=== PATIENT | male | born 1990 | race Caucasian/White ===

== ENCOUNTER 2024-01-14 09:00 | Emergency (ER) | payer BC, SELFPAY ==
[2024-01-14 09:02] VITALS: BP 121/71
--- NOTE | 2024-01-14 09:21 | ED.GENMED ---
History of Present Illness
General
Chief Complaint: Rabies
Source: patient
Exam Limitations: none
Time Seen by Provider: 01/14/24 09:10
Nursing documentation reviewed up to this point in time: agreed with
Travel History
Have you had any contact with someone who has COVID-19?: No
Do you have any symptoms of coronavirus? Fever > 100 degrees, chills, cough, shortness of breath, sore throat, loss of taste or smell, muscle aches, or headache?: No
History of Present Illness
History of Present Illness:
Otherwise healthy 33-year-old male presenting to the emergency department today with concerns of a dog bite to his left posterior leg that occurred prior to arrival. He was helping up someone at the park would fall and when their dog ran up and bit
him in the leg. He is unsure if the dog is vaccinated the carton wrapper was unsure as well. He claims that he has no way of communicating with them in the future and is seeking rabies prophylaxis at this point. He was previously seen at urgent care and
was started on Augmentin and had the wound cleaned out at that point.
Review of Systems
Review of Systems
Allergies reviewed?: Yes
All Other Systems: ROS reviewed and negative except as documented in HPI and ROS
Phy Exam
Physical Exam
Physical Exam:
GENERAL: Alert , in no apparent distress
EYE: pupils equal and reactive
NECK: Supple, no significant adenopathy.
ENT: o/p clr, mmm.
CARDIAC: Regular rate and rhythm .
LUNGS: Clear breath sounds bilaterally, no acute respiratory distress, no wheezes/rales/rhonchi
ABDOMEN: Soft, without focal tenderness, no r/g, no cvat
NEUROLOGICAL: Alert and oriented, no focal neuro deficits
SKIN: What appears to be superficial injuries to the left-sided posterior leg just above the knee and popliteal fossa. No active bleeding mild tenderness to the area able to range fully at the knee warm and dry, skin intact.
MUSCULOSKELETAL: No edema, well perfused.
PSYCH: Normal and appropriate interaction.
Course
Orders/Labs/Results
Orders:
Orders
01/14/24 09:33
Rabies Immune Globulin/Pf [HyperRAB] 1,860 unit IM NOW STA
01/14/24 09:45
Rabies Vaccine (Pcec)/Pf [Rabavert Rabies Vacc W-Diluent] 2.5 unit IM .ONCE ONE
Vital Signs
Initial and Last Documented VS:
Initial Vital Signs
Temp Pulse Resp BP Pulse Ox
98.1 F 71 18 121/71 99
01/14/24 09:02 01/14/24 09:02 01/14/24 09:02 01/14/24 09:02 01/14/24 09:02
Last Documented Vital Signs
Temp Pulse Resp BP Pulse Ox
98.1 F 71 18 121/71 99
01/14/24 09:02 01/14/24 09:02 01/14/24 09:02 01/14/24 09:02 01/14/24 09:02
MDM/Problems Addressed
MDM/Problems Addressed:
33-year-old male presenting to the emergency department today with concerns of a dog bite to the left posterior leg. He is concerned that he is unable to follow-up with the carton wrapper and the carton wrapper was unsure if the dog was vaccinated. He is seeking
rabies prophylaxis at this point. Risk-benefit of this treatment was discussed with the patient and he elected for further treatment immunoglobulin and vaccine. He was also started on Augmentin. Patient up-to-date with his tetanus shot. Stable
for discharge injury to the leg was bandaged prior to discharge. No signs of deeper space injury.
*Critical Care Note
Total Time (30-74mins, 75-104mins- exclusive of procedures): Not Applicable
ED Attending Note
-
Portions of this chart may have been created with voice recognition software.� Occasional wrong word or��sound alike� substitutions may have occurred due to the inherent limitations of voice recognition software.
Discharge Plan
Departure
Patient Disposition: Home (Routine Discharge)
Date of Disposition: 01/14/24
Time of Disposition: 10:20
Patient with high blood pressure during this ER visit?: No
Condition: Good
Covid-19: Not Applicable
Discharge Problem:
Dog bite
Instructions: Animal Bites (DC), Rabies
Prescriptions:
New
RabAvert (PF) 2.5 unit Suspension For Reconstitution
1 ml IM . DIRECTED Qty: 3 0RF
Rx Instructions:
See Rabies Vaccine Post Exposure Prophylaxisfor Dosing Instructions Doses 01/17, 01/21, 01/27
Stand Alone Forms: Rabies Vaccine Post Exp Dosing
Activity Restrictions/Additional Instructions:
You came to the emergency department today after being bit by dog. You were started on the rabies prophylaxis. You are given the immunoglobulin and the vaccine today. Please receive the additional rabies vaccines on day 3 7 and 14 at the infusion
center. Return to the emergency department immediately for any worsening, new or concerning symptoms. Please additionally take Augmentin to reduce risk of infection and keep the area clean and covered.
Interventions
Interventions:
*Risk Screen - Suicide Last Done: 01/14/24 09:02
*General Assessment Last Done: 01/14/24 09:02
*Neglect/Abuse Screening Last Done: 01/14/24 09:02
*ED COVID-19 Vaccine History Last Done: 01/14/24 09:02
[2024-01-14] MEDS: HyperRAB 1860 UNIT IM (10:08)
[2024-01-14] MEDS: RABAVERT RABIES VACC W-DILUENT 2.5 UNIT IM (10:09)
== END 2024-01-14 10:46 | disposition home or self-care (01) ==
LOC: EMR 09:00
PROVIDERS: EMERGENCY PHYSICIAN Emergency Medicine
DX: S80.812A Abrasion, left lower leg, initial encounter (principal); W54.0XXA Bitten by dog, initial encounter; Z23 Encounter for immunization; Z20.3 Contact with and (suspected) exposure to rabies
CPT/HCPCS: 99284; 90471; 96372; 90375; 90675

== ENCOUNTER 2024-01-21 14:26 | Outpatient (RCR) | payer BC, SELFPAY ==
[2024-01-17 13:12] VITALS: BP 127/68
[2024-01-17] MEDS: RABAVERT RABIES VACC W-DILUENT 2.5 UNIT IM (13:25)
[2024-01-21] MEDS: RABAVERT RABIES VACC W-DILUENT 2.5 UNIT IM (14:39)
[2024-01-21 14:50] VITALS: BP 135/61
== END 2024-01-24 08:56 | disposition home or self-care (01) ==
LOC: OID 14:26
PROVIDERS: ATTENDING PHYSICIAN Emergency Medicine
DX: Z20.3 Contact with and (suspected) exposure to rabies (principal); Z23 Encounter for immunization
CPT/HCPCS: 90471; 90675

== ENCOUNTER 2024-01-28 12:53 | Outpatient (RCR) | payer BC, SELFPAY ==
[2024-01-28 13:06] VITALS: BP 128/70
[2024-01-28] MEDS: RABAVERT RABIES VACC W-DILUENT 2.5 UNIT IM (13:17)
== END 2024-02-27 23:59 | disposition home or self-care (01) ==
LOC: OID 12:53
PROVIDERS: ATTENDING PHYSICIAN Emergency Medicine
DX: Z20.3 Contact with and (suspected) exposure to rabies (principal); Z23 Encounter for immunization
CPT/HCPCS: 90471; 90675